=== PATIENT | male | born 1960 | race Caucasian/White ===

== ENCOUNTER 2020-10-04 02:24 | Outpatient (CLI) | payer OTHER, SELFPAY ==
[2020-10-04 21:22] LABS: SARS-CoV-2 RNA PCR Negative
== END 2020-10-04 02:25 | disposition home or self-care (01) ==
LOC: ANHCOVIDDT 02:25
PROVIDERS: PCP Physician Assistant; Visit Provider Internal Medicine Gastroenterology
DX: Z01.818 Encounter for other preprocedural examination (principal); Z20.828 Contact with and (suspected) exposure to other viral communicable diseases
CPT/HCPCS: 87635; C9803; U0003

== ENCOUNTER 2020-10-07 00:14 | Day surgery (SDC) | payer OTHER, SELFPAY ==
[2020-10-01 10:30] VITALS: BMI 26.8
[2020-10-07 06:25] VITALS: BP 116/83; PULSE 70; RESP 16; TEMP 36.1; O2SAT 99; BMI 29.2
[2020-10-07] MEDS: LACTATED RINGERS 1,000 ML 150 ML IV CONT (06:37)
--- NOTE | 2020-10-07 07:10 | WPDANESEPPF ---
Anes - Initial Pre Proc Eval Procedure: Operation Date: 10/07/20 07:30 Proposed Procedures p Screening Colonoscopy - Aj Johnson DO Date/Time: 10/07/20 07:10 Surgeon: Aj Johnson DO Pre Op Diagnosis: Neoplasm Screening Patient Data Age: 60 Gender: M Height: 5 ft 8 in Weight: 87.1 kg Last Vital Signs Temp 97.0 F L 10/07/20 06:25 Pulse 70 10/07/20 06:25 Resp 16 10/07/20 06:25 BP 116/83 10/07/20 06:25 Pulse Ox 99 10/07/20 06:25 Allergies Allergy/AdvReac Type Severity Reaction Status Date / Time No Known Allergies Allergy Verified 10/07/20 06:23 Home Medications Medication Instructions Recorded Confirmed Type amlodipine 5 mg tablet 5 mg PO DAILY #90 tablet 08/04/20 10/07/20 Rx Patient hx anesthesia problems: none Family hx anesthesia problems: none PMFSH Past Medical History Medical History (Updated 08/04/20 @ 09:17 by Max Johnson PA-C) Benign hypertension Closed medial orbital wall fracture Concussion Fatty liver History of colon polyps Imbalance Primary hypertension Prostate cancer screening Vision loss Surgical History Surgical History Hx of tonsillectomy Family History Family History Father Hypertension Grandparent Hypertension Social History Social History Smoking packs per day: 1 Smoking cigarettes per day: 20.0 Years smoked: 10 Smoking pack-years: 10.00 Smoking status: Former smoker Tobacco type: cigarettes Second hand tobacco smoke exposure: No Smoking end date: 11/19/17 Alcohol intake: current Drinks per week: 4 Alcohol use details: WINE Substance use: never Substance use type: does not use Living arrangements: alone Gender identity (if verbalized by the patient): Male Spiritual care concerns: No Anes - Eval Final PreProcedure Day of Procedure 10/07/20 07:10 Patient weight: normal Heart: regular rate and rhythm Lungs: clear to auscultation Airway: Mallampati scale class II Neurological: alert and oriented Last oral intake: >/= 8 hours ASA classification: II Emergent: no Anesthetic plan: proceed Anesthesia type and monitoring: general GIVS and standard monitoring Informed Consent: The patient's anesthetic plan and its attendant risks and benefits were discussed with the patient/family/POA. Questions were solicited and answers provided to the satisfaction of the patient/family/POA.
--- NOTE | 2020-10-07 07:18 | P.HP_ITS ---
H&P: HPI History of Present Illness Date/Time: 10/07/20 07:18 Chief complaint: Neoplasm Screening Narrative: Reason for visit is colonoscopy. This very pleasant gentleman is seen in consultation at the request of the primary physician. Impression: A very pleasant gentleman is here for screening and surveillance colonoscopy. He has a history of adenomatous colon polyps. Recommendation: Colonoscopy. History: This very pleasant gentleman is here for colonoscopy. He has a history adenomatous colon polyps. He is here for screening and surveillance. The GI review systems is negative. Physical examination: General: very pleasant patient in no acute distress. HEENT: Head was normocephalic sclerae is clear mouth without masses neck was supple. Heart: Rate rhythm regular without S3 or S4. Lungs: CTA. Abdomen: Soft with no guarding or rigidity. Bowel sounds were active. Neurologic: Cranial nerves 2 through 12 intact. No focal defects. No clonus. Musculoskeletal system: Revealed no joint tenderness or swelling no muscle at rophy. Extremities: Reveal no significant edema. Skin: Warm and dry with normal turgor. Mental status: intact. Patient is alert and oriented. Review of Systems Review of Systems: All systems reviewed & are unremarkable except as noted in HPI and below PMFSH Past Medical History Medical History (Updated 10/07/20 @ 07:17 by Aj Johnson DO) Adenomatous colon polyp Benign hypertension Concussion NAFLD (nonalcoholic fatty liver disease) Primary hypertension Surgical History Surgical History (Updated 10/07/20 @ 07:17 by Aj Johnson DO) H/O colonoscopy Hx of tonsillectomy Family History Family History Father Hypertension Grandparent Hypertension Social History Social History Smoking packs per day: 1 Smoking cigarettes per day: 20.0 Years smoked: 10 Smoking pack-years: 10.00 Smoking status: Former smoker Tobacco type: cigarettes Second hand tobacco smoke exposure: No Smoking end date: 11/19/17 Alcohol intake: current Drinks per week: 4 Alcohol use details: WINE Substance use: never Substance use type: does not use Living arrangements: alone Gender identity (if verbalized by the patient): Male Spiritual care concerns: No Meds Home Medications and Allergies Home Medications Medication Instructions Recorded Confirmed Type amlodipine 5 mg tablet 5 mg PO DAILY #90 tablet 08/04/20 10/07/20 Rx Allergies Allergy/AdvReac Type Severity Reaction Status Date / Time No Known Allergies Allergy Verified 10/07/20 06:23 Vital Signs Vital Signs - 24 hr 10/07/20 06:25 Temperature 36.1 C L Pulse Rate 70 Respiratory Rate 16 Blood Pressure 116/83 Pulse Oximetry 99
[2020-10-07 07:55] VITALS: BP 122/85; PULSE 70; RESP 22; O2SAT 100
[2020-10-07 08:05] VITALS: BP 113/78; PULSE 71; RESP 24; O2SAT 99
[2020-10-07 08:15] VITALS: BP 124/87; PULSE 64; RESP 15; O2SAT 100
== END 2020-10-07 08:25 | disposition home or self-care (01) ==
PROVIDERS: PCP Physician Assistant; Visit Provider Internal Medicine Gastroenterology
PROC: 0DJD8ZZ Inspection of Lower Intestinal Tract, Via Natural or Artificial Opening Endoscopic (ICD-10-PCS; CPT 45378; principal; 2020-10-07 07:30)
DX: Z12.11 Encounter for screening for malignant neoplasm of colon (principal); K52.9 Noninfective gastroenteritis and colitis, unspecified; K63.5 Polyp of colon; I10 Essential (primary) hypertension; K76.0 Fatty (change of) liver, not elsewhere classified; Z87.891 Personal history of nicotine dependence
CPT/HCPCS: 45380; 88305; J2704; J7120

== ENCOUNTER 2020-11-20 07:26 | Outpatient (CLI) | payer OTHER, SELFPAY ==
[2020-11-26 23:13] LABS: Calprotectin, Stool 13 mcg/g
== END 2020-11-20 07:27 | disposition home or self-care (01) ==
PROVIDERS: PCP Physician Assistant; Visit Provider Physician Assistant Medical
DX: K52.9 Noninfective gastroenteritis and colitis, unspecified (principal)
CPT/HCPCS: 83993